=== PATIENT | male | born 1955 | race Caucasian/White ===

== ENCOUNTER 2017-05-17 20:14 | Emergency (ER) | payer BC ==
[2017-05-17 20:27] VITALS: BP 153/89
--- NOTE | 2017-05-17 21:18 | EDM.PDOC ---
ED HPI GENERAL MEDICAL PROBLEM - General Chief Complaint: ENT Problem Stated Complaint: EYES Time Seen by Provider: 05/17/17 20:59 Source of Information: Reports: Patient, Family, RN Notes Reviewed History Limitations: Reports: No Limitations - History of Present Illness INITIAL COMMENTS - FREE TEXT/NARRATIVE: 61-year-old gentleman presents emergency department today following an event where he seen a semicircular portion of the eye that was getting larger he describes it as waves on water vision was still there but it was blurry event last about 15 minutes now completely resolved denies any loss of vision, feels his vision is back to normal does have an extensive history of trauma to his right eye Denies Pain Score (Numeric/FACES): 0 - Related Data Allergies Allergy/AdvReac Type Severity Reaction Status Date / Time No Known Allergies Allergy Verified 05/17/17 20:36 Home Meds: Home Meds *Candesa/Hctz 1 tab PO DAILY 05/17/17 [History] Past Medical History HEENT History: Reports: Retinal Detachment, Other (See Below) Other HEENT History: r eye surgery multiple Cardiovascular History: Reports: Hypertension, Other (See Below) Other Cardiovascular History: tachycardia Gastrointestinal History: Reports: Other (See Below) Other Gastrointestinal History: acid reflux - Infectious Disease History Infectious Disease History: Reports: Chicken Pox, Measles, Mumps - Past Surgical History HEENT Surgical History: Reports: Cataract Surgery Social & Family History - Tobacco Use Smoking Status *Q: Never Smoker Second Hand Smoke Exposure: No - Caffeine Use Caffeine Use: Reports: Tea - Alcohol Use Days Per Week of Alcohol Use: 3 Number of Drinks Per Day: 3 Total Drinks Per Week: 9 - Recreational Drug Use Recreational Drug Use: No ED ROS GENERAL - Review of Systems Review Of Systems: See Below Constitutional: Reports: No Symptoms HEENT: Reports: Vision Change Respiratory: Reports: No Symptoms Cardiovascular: Reports: No Symptoms ED EXAM GENERAL W FULL EYE - Physical Exam Exam: See Below Exam Limited By: No Limitations General Appearance: Alert, WD/WN, No Apparent Distress Visual Acuity (R) 20/: 40 Visual Acuity (L) 20/: 50 With Correction: No Eyelids: Bilateral: Normal Appearance Conjunctiva & Sclera: Bilateral: Normal Appearance Cornea Exam: Right: Other (Surgical with artificial iris), Left: Normal Appearance Extraocular Movements: Bilateral: Intact Pupils: Other (Artificial iris) Pupillary Size: Right: 4 mm (Fixed), Left: 6 mm Pupillary Reaction: Right: Absent (Artificial iris) Anterior Chamber: Bilateral: Normal Appearance Posterior Chamber: Bilateral: Normal Funduscopic Course - Vital Signs Last Recorded V/S: Last Vital Signs Temp 98.0 F 05/17/17 20:47 Pulse 65 05/17/17 20:47 Resp 16 05/17/17 20:47 BP 153/89 H 05/17/17 20:47 Pulse Ox 97 05/17/17 20:47 Departure - Departure Time of Disposition: 21:18 Disposition: Home, Self-Care 01 Condition: Good Clinical Impression: Change in vision - Discharge Information Referrals: PCP,None [Primary Care Provider] - Additional Instructions: please follow-up with your eye care provider in the morning, call return to the emergency department with worsening of symptoms - Assessment/Plan Plan: Assessment Acuity = acute Site and laterality = change in vision complicated patient with extensive eye trauma history Etiology = unclear etiology Manifestations = none Location of injury = Home Lab values = none Plan He is going to follow-up with his eye care provider in the morning he is asymptomatic at this time Patient was in agreement with the plan all questions were answered, they were instructed to return to the emergency department or call for worsening symptoms. This note was dictated using [employer] voice recognition software please call with any questions.
== END 2017-05-17 21:23 | disposition home or self-care (01) ==
LOC: JP.ED 20:14
DX: H53.9 Unspecified visual disturbance (principal); I10 Essential (primary) hypertension; K21.9 Gastro-esophageal reflux disease without esophagitis; Z98.49 Cataract extraction status, unspecified eye; Z79.899 Other long term (current) drug therapy
CPT/HCPCS: 99284

== ENCOUNTER 2018-04-03 08:27 | Day surgery (SDC) | payer BC ==
[2018-04-03] MEDS ORDERED: Midazolam 1 MG/ML 2 ML SDV ONE (08:29)
[2018-04-03] MEDS ORDERED: fentaNYL 100 MCG/2 ML SDV ONE (08:29)
[2018-04-03] MEDS ORDERED: Propofol 200 MG/20 ML SDV ONE (08:29)
[2018-04-03] MEDS: Lactated Ringers 1,000 ML IV SCH (09:07)
--- NOTE | 2018-04-03 11:25 | OR ---
DATE OF PROCEDURE: 04/03/2018 PREOPERATIVE DIAGNOSIS: Colon cancer screening. POSTOPERATIVE DIAGNOSIS: Diverticulosis. PROCEDURE: Colonoscopy to the cecum. SURGEON: Omar Han MD. ANESTHESIA: IV anesthesia with monitored Anesthesia care. INDICATION: This 62-year-old white male is referred for a colonoscopy for colon cancer screening. He says the last colonoscopic exam was done 11 years ago. I counseled him for the procedure including risks and alternatives, and he gave his informed consent to proceed. DESCRIPTION OF PROCEDURE: The patient was placed in the left lateral decubitus position. IV anesthesia was administered by the Anesthesia Service. Time-out was held. A rectal exam was performed, which was unremarkable. A flexible video Olympus colonoscope was introduced through his anus, up his rectum, out his colon, all the way to the cecum. Once the cecum was reached, the scope was slowly withdrawn examining the mucosa throughout. No neoplastic lesions were seen. We did see a single diverticulum in the left colon. No other lesions were noted. The scope was retroflexed in the rectum with the distal rectum appearing unremarkable. The scope was straightened and removed. He tolerated the procedure well. Omar Han MD /[id number]
[2018-04-03 11:30] VITALS: BP 128/79
== END 2018-04-03 11:36 | disposition home or self-care (01) ==
LOC: JP.SDS 08:27
PROVIDERS: ATTEND Surgery
DX: Z12.11 Encounter for screening for malignant neoplasm of colon (principal); K57.30 Diverticulosis of large intestine without perforation or abscess without bleeding; G47.33 Obstructive sleep apnea (adult) (pediatric); I10 Essential (primary) hypertension; J45.909 Unspecified asthma, uncomplicated; K21.9 Gastro-esophageal reflux disease without esophagitis
CPT/HCPCS: 45378; J2250; J2704; J3010; J7120